=== PATIENT | female | born 1980 | race Caucasian/White ===

== ENCOUNTER 2019-02-17 06:12 | Inpatient (IN) | payer OTHER ==
[2019-02-17] MEDS ORDERED: FENTAnyl 50 MCG/ML VIAL (07:08)
[2019-02-17] MEDS ORDERED: LIDOCAINE 100 MG SYRINGE (07:08)
[2019-02-17] MEDS ORDERED: PROPOFOL 100 ML (07:08)
[2019-02-17] MEDS ORDERED: MIDAZOLAM 1 MG/ML 2 ML INJ (07:08)
[2019-02-17] MEDS ORDERED: ONDANSETRON 4 MG INJ (07:08)
[2019-02-17] MEDS ORDERED: ROCURONIUM 50 MG INJ (07:08)
[2019-02-17] MEDS ORDERED: CEFAZOLIN 1 GM INJ (07:08)
[2019-02-17] MEDS ORDERED: DEXAMETHASONE 4 MG/ML 5 ML INJ (07:08)
[2019-02-17] MEDS ORDERED: SUGAMMADEX SODIUM 200 MG/2 ML VIAL IV (07:09)
[2019-02-17] MEDS ORDERED: FENTAnyl 50 MCG/ML VIAL IV (07:30)
[2019-02-17] MEDS ORDERED: HYDROmorphONE 1 MG/5 ML IV SYRINGE IV (07:30)
[2019-02-17] MEDS ORDERED: MEPERIDINE 25 MG INJ IV (07:30)
[2019-02-17] MEDS ORDERED: METOCLOPRAMIDE 10 MG INJ IV (07:30)
[2019-02-17] MEDS ORDERED: LABETALOL HCL 20MG INJ IV (07:30)
[2019-02-17] MEDS ORDERED: hydrALAzine 20 MG INJ IV (07:30)
[2019-02-17] MEDS ORDERED: HYDROmorphONE 2 MG/ML SYG (08:08)
[2019-02-17] MEDS: VASOPRESSIN 20 UNITS INJ (08:38)
[2019-02-17] MEDS: FENTAnyl 50 MCG/ML VIAL IV (09:56)
[2019-02-17] MEDS ORDERED: ONDANSETRON INJ 6 MG in DEXTROSE 5% 50 ML IVPB (10:00)
[2019-02-17] MEDS ORDERED: ZOLPIDEM 5 MG TAB PO (10:00)
[2019-02-17] MEDS ORDERED: DIPHENHYDRAMINE 50 MG CAP PO (10:00)
[2019-02-17] MEDS: HYDROmorphONE 1 MG/5 ML IV SYRINGE IV ×2 (10:20→10:39)
[2019-02-17] MEDS: ONDANSETRON 4 MG INJ IV (10:20)
[2019-02-17] MEDS: KETOROLAC 30 MG INJ IV ×3 (10:25→21:44)
[2019-02-17] MEDS: LACTATED RINGER'S 1,000 ML IV ×2 (11:04→21:44)
[2019-02-17] MEDS: CEFAZOLIN 1 GM/50 ML (PMX) 50 ML IVPB ×2 (13:52→21:45)
[2019-02-17] MEDS: METOCLOPRAMIDE 10 MG TAB PO ×2 (13:52→17:42)
[2019-02-17] MEDS: HYDROCODONE/APAP (5/325) TAB PO (13:53)
[2019-02-18] MEDS: METOCLOPRAMIDE 10 MG TAB PO ×4 (00:29→17:53)
[2019-02-18] MEDS: LACTATED RINGER'S 1,000 ML IV ×3 (01:53→12:51)
[2019-02-18] MEDS: KETOROLAC 30 MG INJ IV ×4 (04:11→22:30)
[2019-02-18 05:22] LABS: ADD MAN DIFF? NO
[2019-02-18 05:32] LABS: WHITE BLOOD COUNT 12.5 10^3/ul (4.8-10.8)
[2019-02-18 05:32] LABS: BASOPHILS % 0.2 % (0.0-2.0); EOSINOPHILS % 0.1 % (0.0-7.0); HEMATOCRIT 34.4 % (37.0-47.0); HEMOGLOBIN 11.8 g/dl (12.0-16.0); LYMPHOCYTES # 1.7 10^3/ul (0.8-2.9); LYMPHOCYTES % 13.3 % (15.0-51.0); MEAN CORPUSCULAR HEMOGLOBIN 29.2 pg (29.0-33.0); MEAN CORPUSCULAR HGB CONC 34.3 g/dl (32.0-37.0); MEAN CORPUSCULAR VOLUME 85.1 fl (82.0-101.0); MEAN PLATELET VOLUME 9.6 fl (7.4-10.4); MONOCYTE # 0.9 10^3/ul (0.3-0.9); NEUTROPHIL # 9.9 10^3/ul (1.6-7.5); NEUTROPHILS % 79.1 % (39.0-77.0); PLATELET COUNT 232 10^3/UL (140-415); RED BLOOD COUNT 4.04 10^6/ul (4.20-5.40); RED CELL DISTRIBUTION WIDTH 11.9 % (11.5-14.5)
[2019-02-18 05:56] LABS: ANION GAP 7 (5-13); BLOOD UREA NITROGEN 6 mg/dl (7-20); CARBON DIOXIDE 26 mmol/L (21-31); CHLORIDE 109 mmol/L (97-110); POTASSIUM 3.6 mmol/L (3.5-5.1); SODIUM 142 mmol/L (135-144)
[2019-02-18] MEDS: CEFAZOLIN 1 GM/50 ML (PMX) 50 ML IVPB ×3 (06:20→21:11)
[2019-02-18] MEDS: HYDROCODONE/APAP (5/325) TAB PO ×2 (13:18→19:56)
[2019-02-19] MEDS: METOCLOPRAMIDE 10 MG TAB PO ×3 (00:19→12:00)
[2019-02-19] MEDS: KETOROLAC 30 MG INJ IV ×2 (04:21→09:41)
[2019-02-19] MEDS: CEFAZOLIN 1 GM/50 ML (PMX) 50 ML IVPB ×2 (06:09→13:43)
[2019-02-19] MEDS: HYDROCODONE/APAP (5/325) TAB PO (15:06)
== END 2019-02-19 15:50 | disposition home or self-care (01) | DRG 743 ==
LOC: REC 06:12 → MS1 11:15
PROC: 0UB90ZZ Excision of Uterus, Open Approach (ICD-10-PCS; principal; 2019-02-17 07:30)
DX: D25.9 Leiomyoma of uterus, unspecified (principal); N92.1 Excessive and frequent menstruation with irregular cycle; D64.9 Anemia, unspecified
CPT/HCPCS: 80051; 82565; 84520; 84703; 85025; 86850; 86900; 86901; 86920; 87086; 88305